=== PATIENT | male | born 1945 | race Caucasian/White ===

== ENCOUNTER 2017-01-14 11:41 | Inpatient (IN) | payer MEDICARE ==
[~2017-01-14] VITALS: Ht 177.8 cm; Wt 82.2 kg
[~2017-01-14 11:41] MED LIST: AMLO10TA2 PO; BENA5TAB2 PO; CLON0.1T PO; DEXAMETHASONE 4 MG/ML, 1ML ONE; GABA300C10 PO; GABA600T2 PO; HYDR-879 PO; LORA0.5T PO; ONDANSETRON 2MG/ML, 2ML ONE; PHENYLEPHRINE 10 MG/ML ONE; PROPOFOL 10 MG/ML, 20ML ONE; SIMV5TAB5 PO; SUCCINYLCHOLINE 20 MG/ML, 10ML ONE; WARF2TAB7 PO
[2017-01-14] MEDS ORDERED: SODIUM CHLORIDE FLUSH 10ML SYR IVF ONE (12:00)
[2017-01-14] MEDS ORDERED: ONDANSETRON 2MG/ML, 2ML ONE (12:04)
[2017-01-14] MEDS ORDERED: MORPHINE SULFATE 4 MG/ML, 1ML ONE ×2 (12:04→14:05)
[2017-01-14] MEDS: MORPHINE SULFATE 4 MG/ML, 1ML IVPush PRN ×2 (12:24→19:12)
[2017-01-14 12:42] LABS: HEMATOCRIT 27.1 % (39.2-51.8); HEMOGLOBIN 9.1 g/dL (13.7-18.0); WHITE BLOOD COUNT 5.8 x10^3/uL (3.4-10)
[2017-01-14 12:54] LABS: BLOOD UREA NITROGEN 21 mg/dL (7-18)
[2017-01-14] MEDS ORDERED: ONDANSETRON 2MG/ML, 2ML IVPush ONE (13:00)
[2017-01-14] MEDS ORDERED: SODIUM CHLORIDE 0.9% 1,000 ML IV ONE (13:00)
[2017-01-14] MEDS ORDERED: SODIUM CHLORIDE 0.9% 1,000ML IVBOLUS ONE (13:00)
[2017-01-14 13:06] LABS: ASPARTATE AMINO TRANSFERASE 14 U/L (15-37)
[2017-01-14] MEDS ORDERED: OMNIPAQUE 350 MG/ML, 100ML BOTTLE ONE (13:35)
[2017-01-14] MEDS ORDERED: GUAIFENESIN/DM 200-20MG, 10ML UDC PO PRN (16:30)
[2017-01-14] MEDS ORDERED: HYDROcodone/APAP 10/325 MG TABLET PO PRN (16:30)
[2017-01-14] MEDS ORDERED: ONDANSETRON ODT 4 MG PO PRN (16:30)
[2017-01-14] MEDS ORDERED: ONDANSETRON 2MG/ML, 2ML IVPush PRN (16:30)
[2017-01-14] MEDS ORDERED: LABETALOL 5MG/ML, 20ML IVPush PRN (16:30)
[2017-01-14] MEDS: POTASSIUM CHLORIDE 20 MEQ, MAGNESIUM SULFATE 2 GM, THIAMINE 100 MG, MVI ADULT 10 ML, FO... IV SCH (19:27)
[2017-01-14 19:43] VITALS: BP 111/63
[2017-01-14] MEDS: HYDROcodone/APAP 5/325 TABLET PO PRN (19:49)
[2017-01-14] MEDS: morphine SULFATE 10 MG/ML, 1ML IVPush PRN (21:20)
[2017-01-14] MEDS: SIMVASTATIN 5 MG TABLET PO SCH (21:21)
[2017-01-14] MEDS: BENAZEPRIL 5 MG TABLET PO SCH (21:21)
[2017-01-14] MEDS: GABAPENTIN 300 MG CAPSULE PO SCH (21:22)
[2017-01-14] MEDS: LORazepam 0.5MG TABLET PO PRN (21:23)
[2017-01-14] MEDS: DIPHENHYDRAMINE 50 MG CAPSULE PO PRN (21:24)
[2017-01-15 00:58] VITALS: BP 113/70
[2017-01-15] MEDS: HYDROcodone/APAP 5/325 TABLET PO PRN ×2 (04:26→17:16)
[2017-01-15] MEDS: morphine SULFATE 10 MG/ML, 1ML IVPush PRN ×3 (04:30→15:50)
[2017-01-15 05:54] LABS: HEMATOCRIT 24.3 % (39.2-51.8); HEMOGLOBIN 8.2 g/dL (13.7-18.0); WHITE BLOOD COUNT 4.6 x10^3/uL (3.4-10)
[2017-01-15 06:19] LABS: ASPARTATE AMINO TRANSFERASE 12 U/L (15-37); BLOOD UREA NITROGEN 22 mg/dL (7-18)
[2017-01-15 07:21] VITALS: BP 117/72
[2017-01-15] MEDS: BENAZEPRIL 5 MG TABLET PO SCH ×2 (09:00→21:16)
[2017-01-15] MEDS: SENNA/DOCUSATE TABLET PO SCH (09:00)
[2017-01-15] MEDS: GABAPENTIN 300 MG CAPSULE PO SCH ×3 (09:00→21:16)
[2017-01-15] MEDS ORDERED: FENTANYL PF 100 MCG/2ML ONE ×2 (10:01)
[2017-01-15] MEDS ORDERED: MIDAZOLAM 1 MG/ML, 2ML ONE (10:01)
[2017-01-15] MEDS ORDERED: BACITRACIN 50,000 UNIT ONE (11:17)
[2017-01-15] MEDS ORDERED: HYDROmorphone 2 MG/ML, 1ML ONE (11:27)
[2017-01-15] MEDS ORDERED: VANCOMYCIN 1,000 MG ONE (11:32)
[2017-01-15] MEDS ORDERED: HYDROmorphone 1 MG/ML, 1ML ONE (11:57)
[2017-01-15] MEDS: HYDROmorphone 1 MG/ML, 1ML IV PRN ×2 (12:00→12:10)
[2017-01-15] MEDS ORDERED: MEPERIDINE/PF 25MG/0.5ML ONE (12:01)
[2017-01-15] MEDS ORDERED: OXYcodone 5 MG/5 ML ORAL.SOL UDC ONE (12:02)
[2017-01-15] MEDS ORDERED: BUPIVACAINE/PF 0.5% ONE (12:14)
[2017-01-15] MEDS ORDERED: LIDOCAINE-MPF 1%, 2ML ONE (12:15)
[2017-01-15] MEDS ORDERED: DIAZEPAM 5 MG/ML, 2ML IVPush PRN (12:30)
[2017-01-15] MEDS ORDERED: MEPERIDINE/PF 25MG/0.5ML IVPush PRN (12:30)
[2017-01-15] MEDS ORDERED: LABETALOL 5MG/ML, 20ML IV PRN (12:30)
[2017-01-15] MEDS ORDERED: MIDAZOLAM 1 MG/ML, 2ML IV PRN (12:30)
[2017-01-15] MEDS ORDERED: ALBUTEROL/IPRATROPIUM 2.5MG/0.5MG, 3 ML NPPB PRN (12:30)
[2017-01-15] MEDS ORDERED: OXYcodone 5 MG/5 ML ORAL.SOL UDC PO PRN (12:30)
[2017-01-15] MEDS ORDERED: FENTANYL PF 100 MCG/2ML IV PRN (12:30)
[2017-01-15] MEDS ORDERED: ONDANSETRON 2MG/ML, 2ML IVPush PRN (12:30)
[2017-01-15] MEDS ORDERED: PROMETHAZINE 25 MG/ML, 1ML IV PRN (12:30)
[2017-01-15] MEDS ORDERED: EPHEDRINE 50 MG/ML, 1ML IVPush PRN (12:30)
[2017-01-15] MEDS ORDERED: hydrALAzine 20 MG/ML, 1ML IV PRN (12:30)
[2017-01-15] MEDS ORDERED: ACETAMINOPHEN 325 MG TABLET PO PRN (12:30)
[2017-01-15 14:00] VITALS: BP 110/77
[2017-01-15] MEDS ORDERED: VANCOMYCIN PER PHARMACY MC PRN (15:30)
[2017-01-15] MEDS: CEFAZOLIN PMX 2GM/50ML 50 ML IVPB SCH ×2 (15:46→23:05)
[2017-01-15] MEDS ORDERED: PHARMACOKINETIC MONITORING MC PRN (16:30)
[2017-01-15] MEDS ORDERED: PHARMACOKINETIC CONSULTATION MC ONE (16:30)
[2017-01-15] MEDS: OXYcodone/APAP 5/325MG TABLET PO PRN ×2 (19:27→23:05)
[2017-01-15 19:29] VITALS: BP 134/73
[2017-01-15] MEDS: POTASSIUM CHLORIDE 20 MEQ, MAGNESIUM SULFATE 2 GM, THIAMINE 100 MG, MVI ADULT 10 ML, FO... IV SCH (21:16)
[2017-01-15] MEDS: SIMVASTATIN 5 MG TABLET PO SCH (21:17)
[2017-01-15] MEDS: LORazepam 0.5MG TABLET PO PRN (21:17)
[2017-01-15] MEDS: DIPHENHYDRAMINE 50 MG CAPSULE PO PRN (21:17)
[2017-01-16 01:31] VITALS: BP 151/73
[2017-01-16] MEDS: HYDROcodone/APAP 5/325 TABLET PO PRN (01:34)
[2017-01-16] MEDS ORDERED: VANCOMYCIN 1,800 MG in SODIUM CHLORIDE 0.9% 250 ML IV SCH (05:00)
[2017-01-16] MEDS: OXYcodone/APAP 5/325MG TABLET PO PRN ×3 (05:34→18:43)
[2017-01-16 06:27] LABS: ASPARTATE AMINO TRANSFERASE 17 U/L (15-37); BLOOD UREA NITROGEN 26 mg/dL (7-18); HEMOGLOBIN 8.8 g/dL (13.7-18.0); WHITE BLOOD COUNT 5.7 x10^3/uL (3.4-10)
[2017-01-16 07:42] VITALS: BP 116/72
[2017-01-16] MEDS: BENAZEPRIL 5 MG TABLET PO SCH (08:41)
[2017-01-16] MEDS: SENNA/DOCUSATE TABLET PO SCH (08:42)
[2017-01-16] MEDS: GABAPENTIN 300 MG CAPSULE PO SCH ×2 (08:42→20:07)
[2017-01-16] MEDS: POLYETHYLENE GLYCOL 17 GM PACKET PO PRN (12:22)
[2017-01-16 13:24] VITALS: BP 116/68
[2017-01-16] MEDS ORDERED: SODIUM CHLORIDE 0.9%, 500ML IVBOLUS ONE (15:30)
[2017-01-16] MEDS ORDERED: VANCOMYCIN PER PHARMACY MC PRN (15:30)
[2017-01-16] MEDS ORDERED: HEPARIN 25,000 UNITS/500ML PMX 500 ML IV PRN (16:00)
[2017-01-16 17:15] LABS: BLOOD UREA NITROGEN 24 mg/dL (7-18)
[2017-01-16 19:08] VITALS: BP 142/81
[2017-01-16] MEDS: SIMVASTATIN 5 MG TABLET PO SCH (20:07)
[2017-01-16] MEDS: DIPHENHYDRAMINE 50 MG CAPSULE PO PRN (21:23)
[2017-01-16] MEDS: LORazepam 0.5MG TABLET PO PRN (21:23)
[2017-01-16] MEDS: HEPARIN 25,000 UNITS/500ML PMX 500 ML IV PRN (21:26)
[2017-01-17] MEDS: OXYcodone/APAP 5/325MG TABLET PO PRN ×6 (01:42→22:32)
[2017-01-17 03:12] VITALS: BP 141/83
[2017-01-17 03:36] LABS: HEMATOCRIT 25.3 % (39.2-51.8); HEMOGLOBIN 8.5 g/dL (13.7-18.0); WHITE BLOOD COUNT 6.1 x10^3/uL (3.4-10)
[2017-01-17] MEDS: VANCOMYCIN 1,800 MG in SODIUM CHLORIDE 0.9% 250 ML IV SCH (05:01)
[2017-01-17 07:52] VITALS: BP 134/79
[2017-01-17] MEDS: SENNA/DOCUSATE TABLET PO SCH (08:19)
[2017-01-17] MEDS: GABAPENTIN 300 MG CAPSULE PO SCH ×2 (08:19→20:15)
[2017-01-17] MEDS: THIAMINE 100MG TABLET PO SCH (08:19)
[2017-01-17] MEDS: FOLIC ACID 1 MG TABLET PO SCH (08:19)
[2017-01-17] MEDS ORDERED: OMEPRAZOLE 20 MG CAPSULE.DR PO PRN ×2 (12:00→18:30)
[2017-01-17] MEDS: CALCIUM CARBONATE 500 MG TAB.CHEW PO PRN (12:33)
[2017-01-17 13:30] VITALS: BP 157/70
[2017-01-17] MEDS: SODIUM CHLORIDE 0.9% 1,000 ML IV SCH (13:50)
[2017-01-17] MEDS: POLYETHYLENE GLYCOL 17 GM PACKET PO PRN (13:54)
[2017-01-17] MEDS ORDERED: WARFARIN 2.5 MG TABLET PO-COUM ONE ×2 (18:00)
[2017-01-17] MEDS: SIMVASTATIN 5 MG TABLET PO SCH (20:14)
[2017-01-17] MEDS: LORazepam 0.5MG TABLET PO PRN (20:15)
[2017-01-17] MEDS: DIPHENHYDRAMINE 50 MG CAPSULE PO PRN (20:15)
[2017-01-17 20:49] VITALS: BP 135/69
[2017-01-17] MEDS: HEPARIN 25,000 UNITS/500ML PMX 500 ML IV PRN (23:16)
[2017-01-18] MEDS: SODIUM CHLORIDE 0.9% 1,000 ML IV SCH ×3 (00:21→16:15)
[2017-01-18] MEDS: OXYcodone/APAP 5/325MG TABLET PO PRN ×6 (03:01→23:41)
[2017-01-18 03:02] VITALS: BP 156/85
[2017-01-18] MEDS: VANCOMYCIN 1,800 MG in SODIUM CHLORIDE 0.9% 250 ML IV SCH (05:02)
[2017-01-18] MEDS: TAMSULOSIN 0.4 MG CAP.ER.24H PO SCH (07:43)
[2017-01-18] MEDS: FOLIC ACID 1 MG TABLET PO SCH (07:44)
[2017-01-18] MEDS: THIAMINE 100MG TABLET PO SCH (07:44)
[2017-01-18] MEDS: GABAPENTIN 300 MG CAPSULE PO SCH ×2 (07:44→21:08)
[2017-01-18] MEDS: SENNA/DOCUSATE TABLET PO SCH (07:44)
[2017-01-18 07:48] VITALS: BP 130/89
[2017-01-18 09:20] LABS: BLOOD UREA NITROGEN 14 mg/dL (7-18)
[2017-01-18 13:21] VITALS: BP 114/72
[2017-01-18] MEDS ORDERED: WARFARIN 2 MG TABLET PO-COUM ONE (18:00)
[2017-01-18 19:37] VITALS: BP 147/79
[2017-01-18] MEDS: HEPARIN 25,000 UNITS/500ML PMX 500 ML IV PRN (19:37)
[2017-01-18] MEDS: LORazepam 0.5MG TABLET PO PRN (21:07)
[2017-01-18] MEDS: DIPHENHYDRAMINE 50 MG CAPSULE PO PRN (21:08)
[2017-01-18] MEDS: SIMVASTATIN 5 MG TABLET PO SCH (21:08)
[2017-01-18] MEDS: CALCIUM CARBONATE 500 MG TAB.CHEW PO PRN (23:41)
[2017-01-19] MEDS: OXYcodone/APAP 5/325MG TABLET PO PRN ×3 (03:58→14:29)
[2017-01-19] MEDS: POLYETHYLENE GLYCOL 17 GM PACKET PO PRN (03:58)
[2017-01-19 04:32] VITALS: BP 152/80
[2017-01-19 07:45] VITALS: BP 129/77
[2017-01-19 08:02] LABS: HEMATOCRIT 28.4 % (39.2-51.8); HEMOGLOBIN 9.4 g/dL (13.7-18.0); WHITE BLOOD COUNT 6.1 x10^3/uL (3.4-10)
[2017-01-19 08:14] LABS: BLOOD UREA NITROGEN 19 mg/dL (7-18)
[2017-01-19] MEDS: FOLIC ACID 1 MG TABLET PO SCH (09:31)
[2017-01-19] MEDS: GABAPENTIN 300 MG CAPSULE PO SCH (09:31)
[2017-01-19] MEDS: THIAMINE 100MG TABLET PO SCH (09:31)
[2017-01-19] MEDS: SENNA/DOCUSATE TABLET PO SCH (09:31)
[2017-01-19] MEDS: TAMSULOSIN 0.4 MG CAP.ER.24H PO SCH (09:31)
[2017-01-19] MEDS ORDERED: Enoxaparin 1 mg/kg protocol SQ SCH (10:30)
[2017-01-19] MEDS ORDERED: ENOXAPARIN 100 MG/ML SQ SCH (10:30)
[2017-01-19 13:42] VITALS: BP 154/73
[2017-01-19] MEDS ORDERED: ENOX100S4 SQ (16:03)
[2017-01-19] MEDS ORDERED: THIA100T6 PO (16:03)
[2017-01-19] MEDS ORDERED: OMEP-110 PO (16:03)
[2017-01-19] MEDS ORDERED: TAMS-11 PO (16:03)
[2017-01-19] MEDS ORDERED: SIMV5TAB5 PO (16:08)
[2017-01-19] MEDS ORDERED: WARFARIN 2 MG TABLET PO-COUM ONE (18:00)
== END 2017-01-19 17:16 | disposition home or self-care (01) | DRG 166 ==
LOC: ED 12:55 → EDIP 15:39 → 4NOR 17:22 → DCLOUNGE 01-19 16:46
PROVIDERS: ADMIT Internal Medicine; ATTEND Internal Medicine
PROC: 0JCL0ZZ Extirpation of Matter from Right Upper Leg Subcutaneous Tissue and Fascia, Open Approach (ICD-10-PCS; 2017-01-15)
PROC: 0JBL0ZZ Excision of Right Upper Leg Subcutaneous Tissue and Fascia, Open Approach (ICD-10-PCS; principal; 2017-01-15 10:00)
DX: I26.99 Other pulmonary embolism without acute cor pulmonale (principal); N17.0 Acute kidney failure with tubular necrosis; R78.81 Bacteremia; D62 Acute posthemorrhagic anemia; E44.1 Mild protein-calorie malnutrition; I82.401 Acute embolism and thrombosis of unspecified deep veins of right lower extremity; S70.11XA Contusion of right thigh, initial encounter; W01.0XXA Fall on same level from slipping, tripping and stumbling without subsequent striking against object, initial encounter; Z68.26 Body mass index [BMI] 26.0-26.9, adult; E78.5 Hyperlipidemia, unspecified; K59.00 Constipation, unspecified; I10 Essential (primary) hypertension; M19.90 Unspecified osteoarthritis, unspecified site; Y93.01 Activity, walking, marching and hiking; Y92.89 Other specified places as the place of occurrence of the external cause; Y99.8 Other external cause status; Z79.01 Long term (current) use of anticoagulants; Z87.891 Personal history of nicotine dependence; Z86.711 Personal history of pulmonary embolism; S80.01XA Contusion of right knee, initial encounter
CPT/HCPCS: 36415; 72190; 80048; 80053; 80061; 80202; 83605; 83735; 84145; 84439; 85025; 85520; 85610; 85651; 85730; 86140; 87040; 87070; 87075; 87205; 93005; 96361; 96374; J0690; J1100; J1170; J1644; J1650; J2175; J2250; J2405; J2704; J3010; J3370; J3411; J3475; J3480; J3490; J7042; Q0162; Q9967; J0330; J2270; J2370; J7030; J7040; J7050

== ENCOUNTER → 2017-02-08 | Outpatient (CLI) | payer MEDICARE ==
[~2017-02-08] MED LIST changes: -DEXAMETHASONE 4 MG/ML, 1ML ONE; +ENOX100S4 SQ; +OMEP-110 PO; -ONDANSETRON 2MG/ML, 2ML ONE; -PHENYLEPHRINE 10 MG/ML ONE; -PROPOFOL 10 MG/ML, 20ML ONE; -SUCCINYLCHOLINE 20 MG/ML, 10ML ONE; +TAMS-11 PO; +THIA100T6 PO
== END | disposition home or self-care (01) ==
LOC: CFH 11:49
PROVIDERS: ATTEND Family Medicine
DX: M23.221 Derangement of posterior horn of medial meniscus due to old tear or injury, right knee (principal); M23.241 Derangement of anterior horn of lateral meniscus due to old tear or injury, right knee; M94.261 Chondromalacia, right knee; M71.561 Other bursitis, not elsewhere classified, right knee; M25.461 Effusion, right knee

== ENCOUNTER → 2017-02-11 | Outpatient (CLI) | payer MEDICARE ==
[~2017-02-11] MED LIST changes: +OMNIPAQUE 350 MG/ML, 100ML BOTTLE ONE
== END | disposition home or self-care (01) ==
LOC: CFH 11:41
PROVIDERS: ATTEND Family Medicine
DX: K57.30 Diverticulosis of large intestine without perforation or abscess without bleeding (principal); N28.1 Cyst of kidney, acquired; K76.0 Fatty (change of) liver, not elsewhere classified; M51.36 Other intervertebral disc degeneration, lumbar region; I25.10 Atherosclerotic heart disease of native coronary artery without angina pectoris; S00.00XD Unspecified superficial injury of scalp, subsequent encounter; X58.XXXD Exposure to other specified factors, subsequent encounter
CPT/HCPCS: 70486; 74177; Q9967

== ENCOUNTER 2018-02-05 13:22 | Inpatient (IN) | payer MEDICARE ==
[~2018-02-05] VITALS: Ht 177.8 cm; Wt 101.8 kg
[~2018-02-05 13:22] MED LIST changes: -AMLO10TA2 PO; +AMLO10TA6 PO; -BENA5TAB2 PO; +BENA5TAB3 PO; +HYDR-3622 PO; -HYDR-879 PO; -OMNIPAQUE 350 MG/ML, 100ML BOTTLE ONE; -THIA100T6 PO; +THIA100T67 PO; -WARF2TAB7 PO; +WARF2TAB99 PO
[2018-02-05] MEDS ORDERED: SODIUM CHLORIDE 0.9% 1,000ML IVBOLUS ONE ×2 (14:00→16:00)
[2018-02-05] MEDS ORDERED: VANCOMYCIN PER PHARMACY MC ONE (14:00)
[2018-02-05] MEDS ORDERED: AMPICILLIN/SULBACTAM 3 GM in SODIUM CHLORIDE 0.9% 100 ML IV ONE (14:00)
[2018-02-05 14:25] LABS: BASOPHILS % (AUTO) 0 % (0-1); EOSINOPHILS % (AUTO) 0 % (1-7); LYMPHOCYTES # (AUTO) 0.64 x10^3/uL (1-3.4); LYMPHOCYTES % (AUTO) 4 % (22-44); MD NO; MEAN CORPUSCULAR HEMOGLOBIN 32.7 pg (27.5-34.5); MEAN CORPUSCULAR HGB CONC 33.5 g/dL (33.2-36.2); MEAN CORPUSCULAR VOLUME 97.6 fL (81-97); MEAN PLATELET VOLUME 9.7 fL (7.4-10.4); MONOCYTES # (AUTO) 1.28 x10^3/uL (0.2-0.8); MONOCYTES % (AUTO) 9 % (2-9); NEUTROPHILS # (AUTO) 13.03 x10^3/uL (1.8-6.8); NEUTROPHILS % (AUTO) 87 % (42-75); PLATELET COUNT 149 x10^3/uL (130-400); RED CELL DISTRIBUTION WIDTH 15.6 % (9.4-14.8)
[2018-02-05] MEDS ORDERED: VANCOMYCIN 1,800 MG in SODIUM CHLORIDE 0.9% 250 ML IV ONE (14:30)
[2018-02-05 14:34] LABS: INTERNATIONAL NORMALIZED RATIO 2.55 (0.93-1.1)
[2018-02-05 14:37] LABS: ALBUMIN 3.7 g/dL (3.4-5.0); ANION GAP 9 mmol/L (5-15); CALCIUM 8.9 mg/dL (8.5-10.1); CHLORIDE 106 mmol/L (98-107); CREATININE 1.32 mg/dL (0.7-1.3)
[2018-02-05 14:39] LABS: PROTHROMBIN TIME 25.8 Seconds (9.6-11.5)
[2018-02-05] MEDS ORDERED: SLEEPING PILL PO (16:23)
[2018-02-05] MEDS ORDERED: ONDANSETRON ODT 4 MG PO PRN (17:00)
[2018-02-05] MEDS ORDERED: VANCOMYCIN PER PHARMACY MC PRN (17:00)
[2018-02-05] MEDS ORDERED: ONDANSETRON 2MG/ML, 2ML IVPush PRN (17:00)
[2018-02-05] MEDS ORDERED: OXYcodone IR 5MG TABLET PO PRN (17:00)
[2018-02-05] MEDS ORDERED: IBUPROFEN 600 MG TABLET PO PRN (17:00)
[2018-02-05] MEDS ORDERED: ACETAMINOPHEN 325 MG TABLET PO PRN (17:00)
[2018-02-05] MEDS ORDERED: ENALAPRILAT 1.25 MG/ML, 2ML IV ONE (17:30)
[2018-02-05 17:45] VITALS: BP 160/78
[2018-02-05] MEDS ORDERED: PHARMACOKINETIC CONSULTATION MC ONE (18:00)
[2018-02-05] MEDS ORDERED: PHARMACOKINETIC MONITORING MC PRN (18:00)
[2018-02-05 18:30] VITALS: BP 160/78
[2018-02-05 19:20] VITALS: BP 148/89
[2018-02-05] MEDS ORDERED: SODIUM CHLORIDE NASAL SPRAY 45ML BOTTLE NAS PRN (19:30)
[2018-02-05] MEDS: GABAPENTIN 300 MG CAPSULE PO SCH (20:30)
[2018-02-05] MEDS: SIMVASTATIN 20 MG TABLET PO SCH (20:30)
[2018-02-05] MEDS: SODIUM CHLORIDE 0.9% 1,000 ML IV SCH (20:30)
[2018-02-05] MEDS: HYDROcodone/APAP 10/325 MG TABLET PO PRN (20:43)
[2018-02-05 21:25] LABS: MICROSCOPIC INDICATED
[2018-02-05 21:35] LABS: CULTURE INDICATED? NO
[2018-02-05] MEDS: AMPICILLIN/SULBACTAM 3 GM in SODIUM CHLORIDE 0.9% 100 ML IV SCH (22:27)
[2018-02-05] MEDS: LORazepam 0.5MG TABLET PO PRN (22:27)
[2018-02-05] MEDS ORDERED: FLUTICASONE NASAL SPRAY 16GM NAS PRN (22:30)
[2018-02-06 03:00] VITALS: BP 159/98
[2018-02-06 06:21] LABS: BASOPHILS # (AUTO) 0.03 x10^3/uL (0-0.1); BASOPHILS % (AUTO) 0 % (0-1); EOSINOPHILS # (AUTO) 0.02 x10^3/uL (0-0.4); EOSINOPHILS % (AUTO) 0 % (1-7); LYMPHOCYTES # (AUTO) 0.63 x10^3/uL (1-3.4); LYMPHOCYTES % (AUTO) 6 % (22-44); MD NO; MEAN CORPUSCULAR HEMOGLOBIN 33.2 pg (27.5-34.5); MEAN CORPUSCULAR HGB CONC 33.9 g/dL (33.2-36.2); MEAN CORPUSCULAR VOLUME 97.9 fL (81-97); MONOCYTES % (AUTO) 8 % (2-9); NEUTROPHILS % (AUTO) 86 % (42-75); PLATELET COUNT 125 x10^3/uL (130-400); RED BLOOD COUNT 4.41 x10^6/uL (4.38-5.82); RED CELL DISTRIBUTION WIDTH 15.4 % (9.4-14.8)
[2018-02-06 06:25] LABS: ANION GAP 7 mmol/L (5-15); CALCIUM 8.2 mg/dL (8.5-10.1); CHLORIDE 107 mmol/L (98-107); CREATININE 0.91 mg/dL (0.7-1.3)
[2018-02-06] MEDS: AMPICILLIN/SULBACTAM 3 GM in SODIUM CHLORIDE 0.9% 100 ML IV SCH ×3 (06:33→23:30)
[2018-02-06] MEDS: SODIUM CHLORIDE 0.9% 1,000 ML IV SCH ×2 (06:33→21:40)
[2018-02-06 08:00] VITALS: BP 160/94
[2018-02-06 08:35] LABS: INTERNATIONAL NORMALIZED RATIO 1.56 (0.93-1.1); PROTHROMBIN TIME 15.9 Seconds (9.6-11.5)
[2018-02-06] MEDS ORDERED: AMLODIPINE 5 MG TABLET PO SCH ×2 (09:00)
[2018-02-06] MEDS: LORazepam 0.5MG TABLET PO PRN ×2 (09:18→21:39)
[2018-02-06] MEDS: TAMSULOSIN 0.4 MG CAP.ER.24H PO SCH (09:18)
[2018-02-06] MEDS: HYDROcodone/APAP 10/325 MG TABLET PO PRN ×2 (09:18→21:19)
[2018-02-06] MEDS: GABAPENTIN 300 MG CAPSULE PO SCH ×2 (09:18→21:18)
[2018-02-06] MEDS ORDERED: MAGNESIUM SULFATE PMX 2GM/50ML 50 ML IV ONE (10:00)
[2018-02-06 12:36] VITALS: BP 153/85
[2018-02-06] MEDS ORDERED: WARFARIN 2 MG TABLET PO-COUM ONE (13:00)
[2018-02-06] MEDS: BENAZEPRIL 5 MG TABLET PO SCH ×2 (15:39→21:19)
[2018-02-06] MEDS: AMLODIPINE 10 MG TAB PO SCH (15:39)
[2018-02-06] MEDS: VANCOMYCIN 1,800 MG in SODIUM CHLORIDE 0.9% 250 ML IV SCH (15:40)
[2018-02-06] MEDS: LACTOBACILLUS CHEW TABLET PO SCH ×2 (17:10→21:19)
[2018-02-06] MEDS: SIMVASTATIN 20 MG TABLET PO SCH (21:19)
[2018-02-06 21:45] VITALS: BP 104/58
[2018-02-07 03:00] VITALS: BP 132/85
[2018-02-07 04:06] VITALS: BP 132/85
[2018-02-07] MEDS: HYDROcodone/APAP 10/325 MG TABLET PO PRN ×3 (05:10→20:07)
[2018-02-07 06:05] LABS: INTERNATIONAL NORMALIZED RATIO 1.35 (0.93-1.1); PROTHROMBIN TIME 13.8 Seconds (9.6-11.5)
[2018-02-07] MEDS: AMPICILLIN/SULBACTAM 3 GM in SODIUM CHLORIDE 0.9% 100 ML IV SCH ×2 (06:34→20:07)
[2018-02-07 08:15] VITALS: BP 136/79
[2018-02-07] MEDS: SODIUM CHLORIDE 0.9% 1,000 ML IV SCH (09:59)
[2018-02-07] MEDS: GABAPENTIN 300 MG CAPSULE PO SCH ×2 (10:03→20:08)
[2018-02-07] MEDS: LACTOBACILLUS CHEW TABLET PO SCH ×3 (10:03→20:08)
[2018-02-07] MEDS: LORazepam 0.5MG TABLET PO PRN ×2 (10:06→20:08)
[2018-02-07] MEDS: BENAZEPRIL 5 MG TABLET PO SCH ×2 (10:07→20:07)
[2018-02-07] MEDS: TAMSULOSIN 0.4 MG CAP.ER.24H PO SCH (10:09)
[2018-02-07] MEDS: AMLODIPINE 10 MG TAB PO SCH (10:13)
[2018-02-07 14:02] VITALS: BP 115/74
[2018-02-07] MEDS ORDERED: MAGNESIUM SULFATE PMX 2GM/50ML 50 ML IV ONE (15:00)
[2018-02-07] MEDS: VANCOMYCIN 1,800 MG in SODIUM CHLORIDE 0.9% 250 ML IV SCH (16:44)
[2018-02-07] MEDS: INDOMETHACIN 25 MG CAPSULE PO PRN (16:44)
[2018-02-07] MEDS ORDERED: WARFARIN 7.5 MG TABLET PO-COUM ONE (18:00)
[2018-02-07 20:01] VITALS: BP 125/76
[2018-02-07] MEDS: SIMVASTATIN 20 MG TABLET PO SCH (20:08)
[2018-02-08] MEDS: SODIUM CHLORIDE 0.9% 1,000 ML IV SCH ×2 (00:17→12:00)
[2018-02-08 02:08] VITALS: BP 157/79
[2018-02-08] MEDS: AMPICILLIN/SULBACTAM 3 GM in SODIUM CHLORIDE 0.9% 100 ML IV SCH ×2 (02:41→10:46)
[2018-02-08] MEDS: HYDROcodone/APAP 10/325 MG TABLET PO PRN ×3 (04:15→20:34)
[2018-02-08 04:44] LABS: INTERNATIONAL NORMALIZED RATIO 1.38 (0.93-1.1); PROTHROMBIN TIME 14.1 Seconds (9.6-11.5)
[2018-02-08 07:59] VITALS: BP 150/88
[2018-02-08] MEDS: TAMSULOSIN 0.4 MG CAP.ER.24H PO SCH (10:38)
[2018-02-08] MEDS: GABAPENTIN 300 MG CAPSULE PO SCH ×2 (10:38→20:33)
[2018-02-08] MEDS: BENAZEPRIL 5 MG TABLET PO SCH ×2 (10:38→20:33)
[2018-02-08] MEDS: AMLODIPINE 10 MG TAB PO SCH (10:38)
[2018-02-08] MEDS: LACTOBACILLUS CHEW TABLET PO SCH ×3 (10:38→20:33)
[2018-02-08] MEDS: LORazepam 0.5MG TABLET PO PRN ×2 (10:46→20:43)
[2018-02-08] MEDS ORDERED: MORPHINE SULFATE 4 MG/ML, 1ML IVPush PRN (11:30)
[2018-02-08] MEDS ORDERED: OXYcodone 5 MG/5 ML ORAL.SOL UDC PO PRN (11:30)
[2018-02-08] MEDS ORDERED: AMOXICILLIN/CLAV. 400 MG/5 ML ORAL SUSP PO SCH (12:30)
[2018-02-08] MEDS: INDOMETHACIN 25 MG CAPSULE PO PRN (12:39)
[2018-02-08] MEDS: LINEZOLID 600 MG TABLET PO SCH ×2 (12:39→20:34)
[2018-02-08 13:20] VITALS: BP 153/84
[2018-02-08] MEDS: AMOXICILLIN/CLAV 875-125MG TABLET PO SCH ×2 (14:29→20:34)
[2018-02-08] MEDS ORDERED: ERGOCALCIFEROL 50,000 UNIT CAPSULE PO SCH (16:00)
[2018-02-08] MEDS: INDOMETHACIN 25 MG CAPSULE PO SCH ×2 (16:29→20:34)
[2018-02-08] MEDS ORDERED: WARFARIN 7.5 MG TABLET PO-COUM ONE (18:00)
[2018-02-08 20:20] VITALS: BP 129/82
[2018-02-08] MEDS: SIMVASTATIN 20 MG TABLET PO SCH (20:34)
[2018-02-09 01:33] VITALS: BP 128/84
[2018-02-09 02:08] VITALS: BP 159/80
[2018-02-09] MEDS: HYDROcodone/APAP 10/325 MG TABLET PO PRN (04:32)
[2018-02-09 06:56] VITALS: BP 154/84
[2018-02-09 07:03] LABS: INTERNATIONAL NORMALIZED RATIO 1.98 (0.93-1.1); PROTHROMBIN TIME 20.1 Seconds (9.6-11.5)
[2018-02-09] MEDS: TAMSULOSIN 0.4 MG CAP.ER.24H PO SCH (08:06)
[2018-02-09] MEDS: GABAPENTIN 300 MG CAPSULE PO SCH (08:06)
[2018-02-09] MEDS: LACTOBACILLUS CHEW TABLET PO SCH (08:06)
[2018-02-09] MEDS: LINEZOLID 600 MG TABLET PO SCH (08:07)
[2018-02-09] MEDS: AMLODIPINE 10 MG TAB PO SCH (08:07)
[2018-02-09] MEDS: BENAZEPRIL 5 MG TABLET PO SCH (08:07)
[2018-02-09] MEDS: INDOMETHACIN 25 MG CAPSULE PO SCH (08:07)
[2018-02-09] MEDS: AMOXICILLIN/CLAV 875-125MG TABLET PO SCH (08:09)
[2018-02-09] MEDS ORDERED: AMOX1TAB12 PO (11:19)
[2018-02-09] MEDS ORDERED: IBUP-1222 PO (11:19)
[2018-02-09] MEDS ORDERED: ERGO500017 PO (11:19)
[2018-02-09] MEDS ORDERED: ACID1TAB7 PO (11:19)
[2018-02-09] MEDS ORDERED: LINE600T33 PO (11:19)
[2018-02-09] MEDS ORDERED: WARFARIN 5 MG TABLET PO-COUM SCH (18:00)
== END 2018-02-09 13:02 | disposition home or self-care (01) | DRG 871 ==
LOC: ED 16:05 → EDIP 16:17 → 3NW 17:35 → DCLOUNGE 02-09 12:42
PROVIDERS: ADMIT Internal Medicine; ATTEND Internal Medicine
DX: A41.9 Sepsis, unspecified organism (principal); N17.0 Acute kidney failure with tubular necrosis; L03.113 Cellulitis of right upper limb; D68.59 Other primary thrombophilia; J98.11 Atelectasis; R65.20 Severe sepsis without septic shock; E78.5 Hyperlipidemia, unspecified; E55.9 Vitamin D deficiency, unspecified; F41.9 Anxiety disorder, unspecified; G89.29 Other chronic pain; I10 Essential (primary) hypertension; Z79.01 Long term (current) use of anticoagulants; Z86.711 Personal history of pulmonary embolism; Z86.718 Personal history of other venous thrombosis and embolism; Z87.891 Personal history of nicotine dependence; Z79.899 Other long term (current) drug therapy
CPT/HCPCS: 36415; 71045; 80048; 81001; 82040; 82306; 83605; 83735; 84100; 84145; 84550; 85025; 85610; 87040; 87070; 87075; 87147; 87205; 96361; 96365; 96375; 99291; G0378; J0295; J3370; J3475; J7030; J7050

== ENCOUNTER 2018-02-10 14:40 | Inpatient (IN) | payer MEDICARE ==
[~2018-02-10] VITALS: Ht 177.8 cm; Wt 93.5 kg
[~2018-02-10 14:40] MED LIST changes: +ACID1TAB7 PO; +AMOX1TAB12 PO; +ERGO500017 PO; +IBUP-1222 PO; +LINE600T33 PO; +SLEEPING PILL PO
[2018-02-10 15:22] LABS: BASOPHILS # (AUTO) 0.03 x10^3/uL (0-0.1); BASOPHILS % (AUTO) 1 % (0-1); EOSINOPHILS # (AUTO) 0.17 x10^3/uL (0-0.4); EOSINOPHILS % (AUTO) 4 % (1-7); LYMPHOCYTES # (AUTO) 0.79 x10^3/uL (1-3.4); LYMPHOCYTES % (AUTO) 17 % (22-44); MD NO; MEAN CORPUSCULAR HEMOGLOBIN 33.1 pg (27.5-34.5); MEAN CORPUSCULAR HGB CONC 33.8 g/dL (33.2-36.2); MEAN CORPUSCULAR VOLUME 97.8 fL (81-97); MEAN PLATELET VOLUME 8.9 fL (7.4-10.4); MONOCYTES # (AUTO) 0.66 x10^3/uL (0.2-0.8); MONOCYTES % (AUTO) 14 % (2-9); NEUTROPHILS # (AUTO) 2.95 x10^3/uL (1.8-6.8); NEUTROPHILS % (AUTO) 64 % (42-75); PLATELET COUNT 179 x10^3/uL (130-400); RED BLOOD COUNT 4.25 x10^6/uL (4.38-5.82); RED CELL DISTRIBUTION WIDTH 14.3 % (9.4-14.8)
[2018-02-10] MEDS ORDERED: LOPERAMIDE 2 MG CAPSULE ONE (15:28)
[2018-02-10] MEDS ORDERED: metroNIDAZOLE 500 MG TABLET ONE (15:28)
[2018-02-10] MEDS ORDERED: metroNIDAZOLE 500 MG TABLET PO ONE (15:30)
[2018-02-10] MEDS ORDERED: SODIUM CHLORIDE 0.9% 1,000ML IVBOLUS ONE (15:30)
[2018-02-10] MEDS ORDERED: SODIUM CHLORIDE FLUSH 10ML SYR IVF ONE (15:30)
[2018-02-10] MEDS ORDERED: LOPERAMIDE 2 MG CAPSULE PO ONE (15:30)
[2018-02-10 15:31] LABS: ALANINE AMINOTRANSFERASE 24 U/L (12-78); ALBUMIN 2.9 g/dL (3.4-5.0); ANION GAP 8 mmol/L (5-15); CALCIUM 8.9 mg/dL (8.5-10.1); CHLORIDE 109 mmol/L (98-107); CREATININE 1.18 mg/dL (0.7-1.3)
[2018-02-10 15:33] LABS: ALKALINE PHOSPHATASE 67 U/L (45-117); BILIRUBIN,TOTAL 0.3 mg/dL (0.2-1.0); TOTAL PROTEIN 7.2 g/dL (6.4-8.2)
[2018-02-10] MEDS ORDERED: SODIUM CHLORIDE 0.9% 1,000 ML IV ONE (17:10)
[2018-02-10] MEDS ORDERED: SODIUM CHLORIDE FLUSH 10ML SYR IVF PRN (17:30)
[2018-02-10] MEDS ORDERED: ERGOCALCIFEROL 50,000 UNIT CAPSULE PO SCH (18:00)
[2018-02-10] MEDS ORDERED: hydrALAzine 20 MG/ML, 1ML IVPush PRN (18:00)
[2018-02-10] MEDS: LACTOBACILLUS CHEW TABLET PO SCH ×2 (18:00→20:28)
[2018-02-10] MEDS ORDERED: MORPHINE SULFATE 4 MG/ML, 1ML IVPush PRN (18:00)
[2018-02-10] MEDS ORDERED: DOCUSATE 100 MG CAPSULE PO PRN (18:00)
[2018-02-10] MEDS ORDERED: LABETALOL 5MG/ML, 20ML IVPush PRN (18:00)
[2018-02-10] MEDS ORDERED: ACETAMINOPHEN 325 MG TABLET PO PRN (18:00)
[2018-02-10 18:37] LABS: INTERNATIONAL NORMALIZED RATIO 3.04 (0.93-1.1); PROTHROMBIN TIME 30.6 Seconds (9.6-11.5)
[2018-02-10 18:38] VITALS: BP 156/92
[2018-02-10] MEDS: SODIUM CHLORIDE 0.9% 1,000 ML IV SCH (18:38)
[2018-02-10 18:48] VITALS: BP 149/83
[2018-02-10] MEDS ORDERED: BENAZEPRIL 10 MG TABLET ONE (20:17)
[2018-02-10] MEDS: BENAZEPRIL 5 MG TABLET PO SCH (20:27)
[2018-02-10] MEDS: GABAPENTIN 300 MG CAPSULE PO SCH (20:28)
[2018-02-10] MEDS: LINEZOLID 600 MG TABLET PO SCH (20:28)
[2018-02-10] MEDS: SIMVASTATIN 20 MG TABLET PO SCH (20:28)
[2018-02-10] MEDS: HYDROcodone/APAP 10/325 MG TABLET PO PRN (20:28)
[2018-02-10] MEDS ORDERED: WARFARIN 2 MG TABLET PO-COUM ONE (21:48)
[2018-02-10] MEDS ORDERED: LORazepam 1MG TABLET PO ONE (23:30)
[2018-02-11 01:21] VITALS: BP 160/85
[2018-02-11] MEDS: SODIUM CHLORIDE 0.9% 1,000 ML IV SCH (04:44)
[2018-02-11 04:59] LABS: BASOPHILS # (AUTO) 0.07 x10^3/uL (0-0.1); BASOPHILS % (AUTO) 2 % (0-1); EOSINOPHILS # (AUTO) 0.21 x10^3/uL (0-0.4); EOSINOPHILS % (AUTO) 5 % (1-7); LYMPHOCYTES # (AUTO) 1.23 x10^3/uL (1-3.4); LYMPHOCYTES % (AUTO) 27 % (22-44); MD NO; MEAN CORPUSCULAR HEMOGLOBIN 32.6 pg (27.5-34.5); MEAN CORPUSCULAR HGB CONC 33.5 g/dL (33.2-36.2); MEAN CORPUSCULAR VOLUME 97.5 fL (81-97); MEAN PLATELET VOLUME 8.9 fL (7.4-10.4); MONOCYTES # (AUTO) 0.77 x10^3/uL (0.2-0.8); MONOCYTES % (AUTO) 17 % (2-9); NEUTROPHILS % (AUTO) 50 % (42-75); PLATELET COUNT 177 x10^3/uL (130-400); RED BLOOD COUNT 3.78 x10^6/uL (4.38-5.82); RED CELL DISTRIBUTION WIDTH 14.3 % (9.4-14.8)
[2018-02-11 05:03] LABS: INTERNATIONAL NORMALIZED RATIO 2.7 (0.93-1.1); PROTHROMBIN TIME 27.3 Seconds (9.6-11.5)
[2018-02-11 05:08] LABS: ALBUMIN 2.7 g/dL (3.4-5.0); ANION GAP 5 mmol/L (5-15); CALCIUM 8.4 mg/dL (8.5-10.1); CHLORIDE 113 mmol/L (98-107)
[2018-02-11 05:12] LABS: ALANINE AMINOTRANSFERASE 22 U/L (12-78); ALKALINE PHOSPHATASE 52 U/L (45-117); BILIRUBIN,TOTAL 0.4 mg/dL (0.2-1.0); CREATININE 0.97 mg/dL (0.7-1.3); TOTAL PROTEIN 6.3 g/dL (6.4-8.2)
[2018-02-11 06:59] VITALS: BP 150/83
[2018-02-11] MEDS: GABAPENTIN 300 MG CAPSULE PO SCH ×2 (08:59→20:07)
[2018-02-11] MEDS: LINEZOLID 600 MG TABLET PO SCH ×2 (08:59→20:09)
[2018-02-11] MEDS: BENAZEPRIL 5 MG TABLET PO SCH ×2 (08:59→20:09)
[2018-02-11] MEDS: LACTOBACILLUS CHEW TABLET PO SCH ×3 (09:00→20:08)
[2018-02-11] MEDS: TAMSULOSIN 0.4 MG CAP.ER.24H PO SCH (09:00)
[2018-02-11] MEDS: AMLODIPINE 10 MG TAB PO SCH (09:00)
[2018-02-11] MEDS: HYDROcodone/APAP 10/325 MG TABLET PO PRN ×3 (09:09→22:21)
[2018-02-11 14:48] VITALS: BP 164/93
[2018-02-11] MEDS ORDERED: WARFARIN 2 MG TABLET PO-COUM SCH (18:00)
[2018-02-11 18:41] VITALS: BP 147/84
[2018-02-11] MEDS: SIMVASTATIN 20 MG TABLET PO SCH (20:08)
[2018-02-11 22:46] LABS: CLOSTRIDIUM DIFFICILE ANTIGEN NEGATIVE; CLOSTRIDIUM DIFFICILE TOXIN NEGATIVE (Negative)
[2018-02-12] MEDS ORDERED: LORazepam 1MG TABLET PO ONE (01:00)
[2018-02-12 01:12] VITALS: BP 157/82
[2018-02-12 05:39] LABS: INTERNATIONAL NORMALIZED RATIO 2.25 (0.93-1.1); PROTHROMBIN TIME 22.8 Seconds (9.6-11.5)
[2018-02-12 07:38] VITALS: BP 168/83
[2018-02-12] MEDS: AMLODIPINE 10 MG TAB PO SCH (07:40)
[2018-02-12] MEDS: GABAPENTIN 300 MG CAPSULE PO SCH (07:40)
[2018-02-12] MEDS: BENAZEPRIL 5 MG TABLET PO SCH (07:40)
[2018-02-12] MEDS: LACTOBACILLUS CHEW TABLET PO SCH (07:40)
[2018-02-12] MEDS: TAMSULOSIN 0.4 MG CAP.ER.24H PO SCH (07:40)
[2018-02-12] MEDS: HYDROcodone/APAP 10/325 MG TABLET PO PRN (07:40)
[2018-02-12] MEDS: LINEZOLID 600 MG TABLET PO SCH (07:40)
[2018-02-12] MEDS ORDERED: WARFARIN 3 MG TABLET PO-COUM SCH (18:00)
== END 2018-02-12 11:04 | disposition home or self-care (01) | DRG 372 ==
LOC: ED 15:56 → EDIP 17:10 → 3NE 17:57
PROVIDERS: ADMIT Internal Medicine; ATTEND Internal Medicine
DX: A04.9 Bacterial intestinal infection, unspecified (principal); L03.113 Cellulitis of right upper limb; E44.0 Moderate protein-calorie malnutrition; D68.59 Other primary thrombophilia; F41.9 Anxiety disorder, unspecified; G89.29 Other chronic pain; I10 Essential (primary) hypertension; E86.0 Dehydration; E55.9 Vitamin D deficiency, unspecified; T36.95XA Adverse effect of unspecified systemic antibiotic, initial encounter; E78.5 Hyperlipidemia, unspecified; Z86.718 Personal history of other venous thrombosis and embolism; Z86.711 Personal history of pulmonary embolism; Y92.89 Other specified places as the place of occurrence of the external cause; Z87.891 Personal history of nicotine dependence; Z68.29 Body mass index [BMI] 29.0-29.9, adult
CPT/HCPCS: 36415; 80053; 83735; 85025; 85610; 87324; 96360; 96361; G0378; J7030

== ENCOUNTER 2018-09-03 16:12 | Observation (INO) | payer MEDICARE ==
[~2018-09-03] VITALS: Ht 177.8 cm; Wt 93.6 kg
[~2018-09-03 16:12] MED LIST changes: -AMLO10TA6 PO; +AMLO10TA8 PO; +AMOX1TAB64 PO; -CLON0.1T PO; +CLON0.1T22 PO; -GABA600T2 PO; +GABA600T7 PO; +SIMV5TAB14 PO; -SIMV5TAB5 PO
--- NOTE | 2018-09-03 16:20 | NUR ---
72 YR OLD MALE ARRIVED VIA EMS. PER REPORT PT HAS HAS HAD ETOH TODAY, WALKED OUT OF THE [facility] AND FELL. DENIES GETTING DIZZY. PT TAKES BLOOD THINNERS. PT A & O X4. [facility] TECH AT BEDSIDE TO PETTY PT.
[2018-09-03] MEDS ORDERED: LIDOCAINE 1%, 10ML INFIL ONE (16:30)
[2018-09-03 16:45] LABS: BASOPHILS # (AUTO) 0.04 x10^3/uL (0-0.1); BASOPHILS % (AUTO) 1 % (0-1); EOSINOPHILS # (AUTO) 0.06 x10^3/uL (0-0.4); EOSINOPHILS % (AUTO) 1 % (1-7); LYMPHOCYTES # (AUTO) 0.92 x10^3/uL (1-3.4); LYMPHOCYTES % (AUTO) 22 % (22-44); MD NO; MEAN CORPUSCULAR HEMOGLOBIN 32.3 pg (27.5-34.5); MEAN PLATELET VOLUME 9.8 fL (7.4-10.4); MONOCYTES # (AUTO) 0.29 x10^3/uL (0.2-0.8); MONOCYTES % (AUTO) 7 % (2-9); NEUTROPHILS % (AUTO) 69 % (42-75); PLATELET COUNT 149 x10^3/uL (130-400); RED BLOOD COUNT 4.06 x10^6/uL (4.38-5.82); RED CELL DISTRIBUTION WIDTH 14.7 % (9.4-14.8)
[2018-09-03] MEDS ORDERED: LIDOCAINE-MPF 1%, 5ML ONE ×2 (16:45)
[2018-09-03 16:51] LABS: INTERNATIONAL NORMALIZED RATIO 1.77 (0.93-1.1); PROTHROMBIN TIME 18.2 Seconds (9.6-11.5)
[2018-09-03 16:52] LABS: ALANINE AMINOTRANSFERASE 22 U/L (12-78); ALBUMIN 3.6 g/dL (3.4-5.0); ANION GAP 7 mmol/L (5-15); CALCIUM 8.3 mg/dL (8.5-10.1); CHLORIDE 107 mmol/L (98-107); CREATININE 1.26 mg/dL (0.7-1.3)
[2018-09-03 16:54] LABS: ALKALINE PHOSPHATASE 65 U/L (45-117); BILIRUBIN,TOTAL 0.5 mg/dL (0.2-1.0); TOTAL PROTEIN 6.3 g/dL (6.4-8.2)
--- NOTE | 2018-09-03 17:40 | NUR ---
PT TO CT VIA [facility]
--- NOTE | 2018-09-03 18:29 | NUR ---
DR RANGEL AT BEDSIDE TO RE-EVAL PT. PT TO BE ADMITTED INPATIENT. PT GIVEN URINAL TO USE. NO OTHER NEEDS EXPRESSED AT THIS TIME.
--- NOTE | 2018-09-03 19:04 | NUR ---
REPORT RECEIVED, POC DISCUSSED, CARE ASSUMED. PT TO BE ADMITTED.
--- NOTE | 2018-09-03 19:04 | NUR ---
REPORT TO SAMMIE WADDELL.
--- NOTE | 2018-09-03 19:23 | NUR ---
REPORT TO BAIRON SANTO. PT READY TO TRANSFER.
[2018-09-03 20:00] VITALS: BP 117/66
[2018-09-03] MEDS ORDERED: ONDANSETRON ODT 4 MG PO PRN (20:00)
[2018-09-03] MEDS ORDERED: DOCUSATE 100 MG CAPSULE PO PRN (20:00)
[2018-09-03] MEDS ORDERED: LORazepam 1MG TABLET PO PRN (20:00)
[2018-09-03] MEDS ORDERED: LIDODERM 5% PATCH TD PRN (20:00)
[2018-09-03] MEDS: D5%-0.45% NACL 1,000 ML IV SCH (20:41)
[2018-09-03] MEDS ORDERED: SIMVASTATIN 20 MG TABLET PO SCH (21:00)
[2018-09-04 03:00] VITALS: BP 154/80
[2018-09-04] MEDS: D5%-0.45% NACL 1,000 ML IV SCH ×2 (03:57→11:49)
[2018-09-04 06:36] LABS: BASOPHILS # (AUTO) 0.03 x10^3/uL (0-0.1); BASOPHILS % (AUTO) 1 % (0-1); EOSINOPHILS # (AUTO) 0.08 x10^3/uL (0-0.4); EOSINOPHILS % (AUTO) 2 % (1-7); LYMPHOCYTES # (AUTO) 0.92 x10^3/uL (1-3.4); LYMPHOCYTES % (AUTO) 25 % (22-44); MD NO; MEAN CORPUSCULAR HEMOGLOBIN 32.3 pg (27.5-34.5); MEAN CORPUSCULAR VOLUME 95.1 fL (81-97); MEAN PLATELET VOLUME 9.9 fL (7.4-10.4); MONOCYTES # (AUTO) 0.48 x10^3/uL (0.2-0.8); MONOCYTES % (AUTO) 13 % (2-9); NEUTROPHILS % (AUTO) 59 % (42-75); PLATELET COUNT 132 x10^3/uL (130-400); RED BLOOD COUNT 4.27 x10^6/uL (4.38-5.82); RED CELL DISTRIBUTION WIDTH 14.3 % (9.4-14.8)
[2018-09-04 06:50] LABS: ANION GAP 6 mmol/L (5-15); CALCIUM 8.6 mg/dL (8.5-10.1); CHLORIDE 110 mmol/L (98-107); CREATININE 1.06 mg/dL (0.7-1.3)
[2018-09-04 07:30] VITALS: BP 155/82
[2018-09-04] MEDS ORDERED: AMLODIPINE 10 MG TAB PO SCH (09:00)
[2018-09-04] MEDS ORDERED: TAMSULOSIN 0.4 MG CAP.ER.24H PO SCH (09:00)
[2018-09-04 12:51] VITALS: BP 149/75
== END 2018-09-04 15:05 | disposition home or self-care (01) ==
LOC: ED 16:43 → EDIP 18:35 → INTOOBSV 18:35 → 3NE 19:49 → DCLOUNGE 09-04 15:00
PROVIDERS: ADMIT Family Medicine; ATTEND Family Medicine
DX: S01.81XA Laceration without foreign body of other part of head, initial encounter (principal); D68.69 Other thrombophilia; I95.1 Orthostatic hypotension; T45.515A Adverse effect of anticoagulants, initial encounter; F10.220 Alcohol dependence with intoxication, uncomplicated; I11.9 Hypertensive heart disease without heart failure; E78.5 Hyperlipidemia, unspecified; Z79.01 Long term (current) use of anticoagulants; Z87.891 Personal history of nicotine dependence; Z86.718 Personal history of other venous thrombosis and embolism; Z86.711 Personal history of pulmonary embolism; Y90.8 Blood alcohol level of 240 mg/100 ml or more; W18.30XA Fall on same level, unspecified, initial encounter; Y93.89 Activity, other specified; Y92.89 Other specified places as the place of occurrence of the external cause
CPT/HCPCS: 36415; 70450; 71045; 72125; 73564; 80048; 80053; 80307; 85025; 85610; 85730; 93005; 96360; 96361; 99284; G0378